=== PATIENT | male | born 2000 | race Two or more races ===

== ENCOUNTER 2021-08-13 15:41 | Emergency (ER) | payer SELFPAY ==
[~2021-08-13] VITALS: Ht 175.3 cm; Wt 59.0 kg
[2021-08-13] MEDS ORDERED: HYDROcodone-ACET 10/325MG TAB PO ONE (17:30)
[2021-08-13] MEDS ORDERED: KETOROLAC TROMETH 60MG/2ML VIAL IM ONE (17:30)
[2021-08-13] MEDS ORDERED: IBU600T PO ×2 (17:36→17:37)
[2021-08-13] MEDS ORDERED: METR500T PO (18:22)
[2021-08-13] MEDS ORDERED: CEPH-509 PO (18:22)
[2021-08-13 18:53] VITALS: BP 133/85
== END 2021-08-13 18:54 | disposition home or self-care (01) ==
LOC: ER 15:41
DX: N43.3 Hydrocele, unspecified (principal); K52.9 Noninfective gastroenteritis and colitis, unspecified
CPT/HCPCS: 74176; 76870